=== PATIENT | male | born 1950 | race Two or more races ===

== ENCOUNTER 2022-04-26 22:15 | Emergency (ER) | payer MEDICARE, OTHER ==
[~2022-04-26 22:15] MED LIST: ATEN25TA; FLEXERIL; FLOM0.4C39; GABA300T; GLUC500T; HYDR10TA3; HYDR25TA8; HYDROCODONE; OXYB15TA; VICO5TAB
[2022-04-26] MEDS ORDERED: NORCO, ANEXSIA 5/325MG TABLET (HYDROcodone/ACETAMINOPHEN) PO ONE (22:50)
[2022-04-27] MEDS ORDERED: UNRESOLVED CLARIFICATION ENTRY XX SCH (00:01)
[2022-04-27 00:45] VITALS: BP 140/80
== END 2022-04-27 00:52 | disposition home or self-care (01) ==
LOC: EDBD 22:15 → M ED 22:15
DX: S40.011A Contusion of right shoulder, initial encounter (principal); W06.XXXA Fall from bed, initial encounter; Y92.129 Unspecified place in nursing home as the place of occurrence of the external cause; I48.91 Unspecified atrial fibrillation; E11.9 Type 2 diabetes mellitus without complications; I10 Essential (primary) hypertension; E66.01 Morbid (severe) obesity due to excess calories; M25.78 Osteophyte, vertebrae; M50.30 Other cervical disc degeneration, unspecified cervical region; Z79.84 Long term (current) use of oral hypoglycemic drugs; Z79.899 Other long term (current) drug therapy